=== PATIENT | female | born 1990 | race African-American/Black ===

== ENCOUNTER 2021-01-13 14:19 | Emergency (ER) | payer OTHER ==
[2021-01-13] MEDS ORDERED: oxyCODONE 5 MG TABLET PO STA (14:26)
--- NOTE | 2021-01-13 14:27 | ED Physician Documentation ---
PD HPI UPPER EXT INJURY - Stated complaint Stated Complaint: FALL, RIGHT ARM INJURY - History obtained from History obtained from: Patient ([place] and has significant pain of the right elbow despite taking Tylenol prior to arrival. No other injuries. No possibility of .) Review of Systems Ten Systems: 10 systems reviewed and negative Constitutional: reports: Reviewed and negative Eyes: reports: Reviewed and negative Ears: reports: Reviewed and negative Nose: reports: Reviewed and negative Throat: reports: Reviewed and negative PD PAST MEDICAL HISTORY - Present Medications Home Medications: Ambulatory Orders Medication Instructions Recorded Confirmed HYDROcod/ACETAM 5/325 [[place] 5/325] 1 - 2 tab PO Q6H PRN #15 tablet 01/13/21 - Allergies Allergies/Adverse Reactions: Allergies Allergy/AdvReac Type Severity Reaction Status Date / Time No Known Drug Allergies Allergy Verified 01/13/21 14:23 PD ED PE NORMAL - Vitals Vital signs reviewed: Yes - General General: Alert and oriented X 3, No acute distress - HEENT HEENT: PERRL, EOMI - Neck Neck: Supple, no meningeal sign, No bony TTP - Extremities Extremities: Other (Mostly tenderness over the medial epicondyle of the elbow but milder tenderness over the olecranon and lateral epicondyle and supracondylar areas. She is unable to straighten the elbow, holding it mostly in flexion.) - Neuro Neuro: Alert and oriented X 3, Normal speech Results - Vitals Vitals: Vital Signs - 24 hr 01/13/21 01/13/21 14:24 15:29 Temperature 36.8 C 36.8 C Heart Rate 78 74 Respiratory 18 16 Rate Blood Pressure 149/80 H 142/83 H O2 Saturation 100 97 Oxygen O2 Source Room air - Rads (name of study) R elbow XR Radiology: EMP read contemporaneously (radial head frx with effusion) Departure - Departure Disposition: 01 Home, Self Care Clinical Impression: Fracture of radial head, right, closed Qualifiers: Encounter type: initial encounter Fracture alignment: nondisplaced Qualified Code(s): S52.124A - Nondisplaced fracture of head of right radius, initial encounter for closed fracture Condition: Good Record reviewed to determine appropriate education?: Yes Instructions: ED Fx Radial Head Follow-Up: [facility] [Provider Group] Prescriptions: HYDROcod/ACETAM 5/325 [[place] 5/325] 1 - 2 tab PO Q6H PRN #15 tablet PRN Reason: Pain Comments: Call the orthopedics office on Friday to schedule an appointment within the week. Return for new or worsening symptoms. You can wear the sling for comfort, but you can start to remove it and do gentle range of motion exercises as soon as you feel you are ready. Do not drink or drive while taking narcotic pain medication. Note that many narcotic pain relievers also contain Tylenol/acetaminophen. Please ensure that your total dose of acetaminophen from all sources does not exceed 3 g (3000 mg) per day. You may get constipated while on this medication. Take a stool softener such as Colace twice a day while you are on it. Also add an [id number] laxative such as senna or MiraLAX on any day that you do not have a bowel movement. If you received a narcotic pain medication or sedative while in the emergency department, do not drive for the next 24 hours. Discharge Date/Time: 01/13/21 15:40
--- NOTE | 2021-01-13 14:50 | XRAY Report ---
PROCEDURE: Elbow 3 View RT INDICATIONS: elbow inj TECHNIQUE: 3 views of the elbow were acquired. COMPARISON: None FINDINGS: Bones: There is a minimally displaced intra-articular radial head fracture. No additional fractures a re identified. Joint spacing is maintained. Soft tissues: Large joint effusion. No focal soft tissue abnormality. IMPRESSION: Mildly displaced intra-articular radial head fracture with large joint effusion. Reviewed by: Nehemias Silva DO on 01/13/2021 1:48 PM DENISA Approved by: Nehemias Silva DO on 01/13/2021 1:48 PM DENISA Station ID: [id number]
[2021-01-13 15:31] VITALS: BP 142/83
== END 2021-01-13 15:40 | disposition home or self-care (01) ==
LOC: ED 14:19
DX: S52.124A Nondisplaced fracture of head of right radius, initial encounter for closed fracture (principal); W18.30XA Fall on same level, unspecified, initial encounter; Y92.832 Beach as the place of occurrence of the external cause
CPT/HCPCS: 1040M; 73080; 99283; A9270

== ENCOUNTER 2021-01-23 12:33 | Outpatient (CLI) | payer OTHER ==
--- NOTE | 2021-01-23 11:26 | XRAY Report ---
PROCEDURE: Elbow 3 View RT INDICATIONS: FX OR RIGHT RADIAL HEAD TECHNIQUE: 3 views of the elbow were acquired. COMPARISON: Similar study 01/13/2021. FINDINGS: Bones: No previously unidentified fractures or dislocations. No suspicious bony lesions. The intra -articular nondisplaced radial head fracture is again noted with blurring of the fracture margins ind icating early healing. Soft tissues: No elbow joint effusion. No suspicious soft tissue calcifications. IMPRESSION: Early healing of the intra-articular radial head fracture, nondepressed, with reference to the origin al trauma plain films 01/13/2021. No new injury found. Reviewed by: Samuel Covington MD on 01/23/2021 11:24 AM PDT Approved by: Samuel Covington MD on 01/23/2021 11:24 AM PDT Station ID: [id number]
== END 2021-01-23 23:59 | disposition home or self-care (01) ==
LOC: DI.N 12:33
PROVIDERS: ATTEND Orthopaedic Surgery
DX: S52.124D Nondisplaced fracture of head of right radius, subsequent encounter for closed fracture with routine healing (principal)

== ENCOUNTER 2021-02-22 08:00 | Outpatient (CLI) | payer OTHER ==
--- NOTE | 2021-02-22 12:56 | XRAY Report ---
PROCEDURE: Elbow 3 View RT INDICATIONS: DISPLACED FX OF HEAD OF R RADIUS TECHNIQUE: 3 views of the elbow were acquired. COMPARISON: None FINDINGS: Bones: A minimally displaced radial head fracture is unchanged compared to prior x-ray on 01/23/2021. No suspicious bony lesions. Soft tissues: No elbow joint effusion. No suspicious soft tissue calcifications. IMPRESSION: Healing minimally displaced radial head fracture. Reviewed by: Raj Whatley on 02/22/2021 12:54 PM PDT Approved by: Raj Whatley on 02/22/2021 12:54 PM PDT Station ID: [id number]
== END 2021-02-22 23:59 | disposition home or self-care (01) ==
LOC: DI.N 08:00
PROVIDERS: ATTEND Orthopaedic Surgery
DX: S52.121D Displaced fracture of head of right radius, subsequent encounter for closed fracture with routine healing (principal)

== ENCOUNTER 2021-04-02 11:21 | Outpatient (CLI) | payer OTHER ==
--- NOTE | 2021-04-02 10:55 | XRAY Report ---
PROCEDURE: Elbow 3 View RT INDICATIONS: DISPLACED FX OF HEAD OF RIGHT RADIUS TECHNIQUE: 3 views of the elbow were acquired. COMPARISON: X-ray elbow 02/22/2021, 51 and T1 FINDINGS: Bones: Stable alignment of proximal radial head intra-articular fracture with interval healing. No blandon spicious bony lesions. Soft tissues: No elbow joint effusion. No suspicious soft tissue calcifications. IMPRESSION: Continued interval healing with stable alignment of proximal radial head fracture. Reviewed by: Keren Bell MD on 04/02/2021 10:53 AM PDT Approved by: Keren Bell MD on 04/02/2021 10:53 AM PDT Station ID: [id number]
== END 2021-04-02 23:59 | disposition home or self-care (01) ==
LOC: DI.N 11:21
PROVIDERS: ATTEND Orthopaedic Surgery
DX: S52.121D Displaced fracture of head of right radius, subsequent encounter for closed fracture with routine healing (principal)

== ENCOUNTER 2021-06-30 06:53 | Emergency (ER) | payer OTHER ==
[2021-06-30] MEDS ORDERED: KETOROLAC 60 MG/2 ML VIAL IM STA (07:29)
--- NOTE | 2021-06-30 07:31 | ED Physician Documentation ---
History of Present Illness - Stated complaint Stated Complaint: CHEST PAIN - Chief complaint Chief Complaint: Cardiac - History obtained from History obtained from: Patient - Additonal information Additional information: 31-year-old woman, previously healthy presents with chest pain that is substernal, sharp, intermittent,Worse with deep breathing, pressing on it. Patient denies any excess physical exertion recently. PERC negative. No cough or fever, no sick contacts. Review of Systems Ten Systems: 10 systems reviewed and negative Constitutional: denies: Fever, Chills Cardiac: reports: Chest pain / pressure. denies: Palpitations Respiratory: denies: Dyspnea, Cough GI: denies: Nausea PD PAST MEDICAL HISTORY - Past Medical History Cardiovascular: None Respiratory: None Neuro: None Endocrine/Autoimmune: None GI: None [employer]ING [employer]: None : None HEENT: None Psych: None Musculoskeletal: None Derm: None - Past Surgical History Past Surgical History: Yes - Present Medications Home Medications: Ambulatory Orders Medication Instructions Recorded Confirmed Ketorolac [Toradol] 10 mg PO Q6H PRN #30 tablet 06/30/21 - Allergies Allergies/Adverse Reactions: Allergies Allergy/AdvReac Type Severity Reaction Status Date / Time No Known Drug Allergies Allergy Verified 06/30/21 07:02 - Social History Does the pt smoke?: No Smoking Status: Never smoker Does the pt drink ETOH?: Yes Does the pt have substance abuse?: No - Immunizations Immunizations are current?: Yes PD ED PE NORMAL - Vitals Vital signs reviewed: Yes - General General: Alert and oriented X 3, No acute distress, Well developed/nourished - HEENT HEENT: Atraumatic, PERRL, EOMI - Neck Neck: Supple, no meningeal sign - Cardiac Cardiac: RRR - Respiratory Respiratory: No respiratory distress, Clear bilaterally - Abdomen Abdomen: Non tender, Non distended - Derm Derm: Normal color, Warm and dry, No rash - Extremities Extremities: No deformity - Neuro Neuro: Alert and oriented X 3, No motor deficit, No sensory deficit Results - Vitals Vitals: Vital Signs - 24 hr 06/30/21 07:00 Temperature 36.5 C Heart Rate 98 Respiratory 18 Rate Blood Pressure 157/94 H O2 Saturation 98 Oxygen O2 Source Room air - EKG (time done) 0657 Rate: Rate (enter#) (78) Rhythm: NSR [place]: Normal Intervals: Normal [place] QRS: Normal Ischemia: Normal ST segments PD MEDICAL DECISION MAKING - ED course ED course: 31-year-old woman presents with atypical chest pain. Pain is reproducible with palpation. CXR and ekg noncontributory. Return precautions given. Patient should follow-up with her primary doctor. Departure - Departure Disposition: 01 Home, Self Care Clinical Impression: Chest pain Condition: Good Instructions: ED Chest Pain NonCardiac Prescriptions: Ketorolac [Toradol] 10 mg PO Q6H PRN #30 tablet PRN Reason: Pain Comments: You are seen in the emergency department for chest pain. There is no emergent cause for your pain. It is likely a muscle strain in the chest wall. Return to the emergency department if you have any new or worsening symptoms or other concerns. Follow-up with your primary doctor.
--- NOTE | 2021-06-30 08:07 | XRAY Report ---
PROCEDURE: Chest 2 View X-Ray INDICATIONS: chest pain TECHNIQUE: 2 view(s) of the chest. COMPARISON: None. FINDINGS: Overlying EKG wires. Surgical changes and devices: None. Lungs and pleura: No pleural effusions or pneumothorax. Lungs are clear. Mediastinum: Mediastinal contours are normal. Heart size is normal. Bones and chest wall: No suspicious bony abnormalities. Soft tissues appear unremarkable. IMPRESSION: No evidence of an acute cardiopulmonary abnormality. Reviewed by: Nehemias Silva DO on 06/30/2021 7:05 AM DENISA Approved by: Nehemias Silva DO on 06/30/2021 7:05 AM DENISA Station ID: [id number]
[2021-06-30 08:42] VITALS: BP 125/89
== END 2021-06-30 09:30 | disposition home or self-care (01) ==
LOC: ED 06:53
DX: R07.89 Other chest pain (principal)
CPT/HCPCS: 93005; 96372; 99283; 99284